=== PATIENT | female | born 1940 | race Caucasian/White ===

== ENCOUNTER 2017-09-08 09:34 | Inpatient (IN) | payer MEDICARE, BC ==
[2017-09-08 11:01] LABS: CHLORIDE,CL 106 mEq/L (98-106); SODIUM,NA 141 mEq/L (136-145)
[2017-09-08] MEDS ORDERED: Iopamidol 755 Mg/ML 100 ML Bottle IVPUSH ONE (11:25)
[2017-09-08] MEDS ORDERED: Ondansetron 4 MG/2 ML SDV IV PRN (14:10)
[2017-09-08] MEDS ORDERED: Acetaminophen 325 MG Tab PO PRN (14:10)
[2017-09-08] MEDS ORDERED: Ondansetron 4 MG Tab.DIS PO PRN (14:10)
[2017-09-08] MEDS ORDERED: Docusate Sodium 100 MG Cap PO PRN (14:10)
[2017-09-08] MEDS ORDERED: Sodium Chloride 0.9% 10 ML Syringe FLUSH PRN (14:10)
[2017-09-08] MEDS ORDERED: Magnesium Hydroxide 400 MG/5 ML Susp 30 ML Cup PO PRN (14:10)
[2017-09-08] MEDS ORDERED: Enoxaparin 80 MG/0.8 ML Syringe SUBCUT SCH (14:30)
[2017-09-08] MEDS: Warfarin 5 MG Tab PO SCH (15:39)
[2017-09-08] MEDS ORDERED: FLU Vacc QS 2017-18 (36mos UP)/PF 60 MCG/0.5 ML Syringe IM ONE (18:16)
[2017-09-08] MEDS: Enoxaparin 60 MG/0.6 ML Syringe SUBCUT SCH (19:49)
[2017-09-08] MEDS: Cholecalciferol (Vitamin D3) 1,000 Unit Tab PO SCH (19:54)
[2017-09-08] MEDS: Pantoprazole 40 MG Tab.CR PO SCH (19:54)
[2017-09-08] MEDS: Simvastatin 40 MG Tab PO SCH (19:54)
[2017-09-08] MEDS: Sertraline 25 MG Tab PO SCH (19:55)
[2017-09-08] MEDS ORDERED: Aspirin 325 MG Tab.EC PO SCH (20:00)
[2017-09-08] MEDS ORDERED: Losartan 25 MG Tab PO SCH (20:00)
[2017-09-08] MEDS ORDERED: Hydrochlorothiazide 12.5 MG Cap PO SCH (20:00)
[2017-09-09] MEDS ORDERED: Albuterol 8 GM Inhaler INH PRN (07:32)
[2017-09-09] MEDS ORDERED: Aspirin 81 MG Tab.EC PO ONE (08:26)
[2017-09-09] MEDS: Enoxaparin 60 MG/0.6 ML Syringe SUBCUT SCH ×2 (09:00→20:28)
[2017-09-09] MEDS: predniSONE 5 MG Tab PO SCH (09:01)
[2017-09-09] MEDS: Sertraline 100 MG Tab PO SCH (09:02)
[2017-09-09] MEDS: Isosorbide Mononitrate 30 MG Tab.ER PO SCH (09:02)
--- NOTE | 2017-09-09 09:30 | PCM.PN ---
- General Info Date of Service: 09/09/17 Admission Dx/Problem (Free Text): Right Pulmonary Embolism Subjective Update: Eula reports no overnight issues. Reports pain is well controlled. Continued shortness of breath and some right lower chest pain. Vital signs stable on room air. Nursing reports patients home medications need adjusted as patient reports she is no longer taking certain medications. Otherwise, no isses. Functional Status: Reports: Pain Controlled, Tolerating Diet, Ambulating, Urinating - Review of Systems General: Reports: Fatigue HEENT: Reports: No Symptoms Pulmonary: Reports: Shortness of Breath, Cough (occassional), Other (right lower chest pain- ache) Cardiovascular: Reports: No Symptoms, Dyspnea on Exertion Gastrointestinal: Reports: No Symptoms Genitourinary: Reports: No Symptoms Musculoskeletal: Reports: No Symptoms Skin: Reports: No Symptoms - Patient Data Vitals - Most Recent: Last Vital Signs Temp 96.5 F 09/09/17 07:29 Pulse 52 L 09/09/17 07:29 Resp 16 09/09/17 07:29 BP 137/63 09/09/17 09:02 Pulse Ox 97 09/09/17 07:29 Weight - Most Recent: 162 lb Lab Results Last 24 Hours: Laboratory Results - last 24 hr 09/08/17 09/08/17 09/08/17 Range/Units 07:00 09:43 09:43 PT 9.9 (9.7-12.3) SEC INR 0.92 (0.92-1.18) D-Dimer, Quantitative 1.34 H (0.00-0.50) Sodium (136-145) mEq/L Potassium (3.5-5.0) mEq/L Chloride (98-106) mEq/L Carbon Dioxide (21-32) mmol/L BUN (7-18) mg/dL Creatinine (0.6-1.0) mg/dL Est Cr Clr Drug Dosing Estimated GFR (MDRD) (>=60) mL/min Glucose (75-99) mg/dL Calcium (8.4-10.1) mg/dL C-Reactive Protein 2.3 H (0.2-0.8) mg/dL NT-Pro-B Natriuret Pep 657 (0-1000) pg/mL 09/08/17 09/08/17 09/09/17 Range/Units 10:45 14:46 07:20 PT Cancelled 10.8 (9.7-12.3) SEC INR Cancelled 1.00 (0.92-1.18) D-Dimer, Quantitative (0.00-0.50) Sodium 141 (136-145) mEq/L Potassium 4.4 (3.5-5.0) mEq/L Chloride 106 (98-106) mEq/L Carbon Dioxide 29 (21-32) mmol/L BUN 21 H (7-18) mg/dL Creatinine 0.9 (0.6-1.0) mg/dL Est Cr Clr Drug Dosing TNP Estimated GFR (MDRD) > 60 (>=60) mL/min Glucose 98 (75-99) mg/dL Calcium 9.1 (8.4-10.1) mg/dL C-Reactive Protein (0.2-0.8) mg/dL NT-Pro-B Natriuret Pep (0-1000) pg/mL Med Orders - Current: Current Medications Acetaminophen (Tylenol) 650 mg PO Q4H PRN PRN Reason: Pain (Mild 1-3)/fever Albuterol (Ventolin Hfa) 0 gm INH ASDIRECTED PRN PRN Reason: Dyspnea Aspirin (Halfprin) 81 mg PO BEDTIME [facility] Cholecalciferol (Vitamin D3) 5,000 units PO BEDTIME [facility] Last Admin: 09/08/17 19:54 Dose: 5,000 units Docusate Sodium (Colace) 100 mg PO BID PRN PRN Reason: Constipation Enoxaparin Sodium (Lovenox) 60 mg SUBCUT BID [facility] Last Admin: 09/09/17 09:00 Dose: 60 mg Isosorbide Mononitrate (Imdur) 30 mg PO DAILY [facility] Last Admin: 09/09/17 09:02 Dose: 30 mg Magnesium Hydroxide (Milk Of Magnesia) 30 ml PO Q12H PRN PRN Reason: Constipation Last Admin: 09/09/17 09:12 Dose: 30 ml Magnesium Oxide (Magnesium Oxide) 500 mg PO BEDTIME [facility] Last Admin: 09/08/17 19:53 Dose: 500 mg Ondansetron HCl (Zofran Odt) 4 mg PO Q4H PRN PRN Reason: nausea, able to take PO Ondansetron HCl (Zofran) 4 mg IV Q4H PRN PRN Reason: Nausea/Vomiting Pantoprazole Sodium (Protonix) 40 mg PO BEDTIME [facility] Last Admin: 09/08/17 19:54 Dose: 40 mg Prednisone (Prednisone) 2.5 mg PO DAILY [facility] Last Admin: 09/09/17 09:01 Dose: 2.5 mg Sertraline HCl (Zoloft) 50 mg PO BEDTIME [facility] Last Admin: 09/08/17 19:55 Dose: 50 mg Sertraline HCl (Zoloft) 100 mg PO DAILY [facility] Last Admin: 09/09/17 09:02 Dose: 100 mg Simvastatin (Zocor) 80 mg PO BEDTIME [facility] Last Admin: 09/08/17 19:54 Dose: 80 mg Sodium Chloride (Saline Flush) 10 ml FLUSH ASDIRECTED PRN PRN Reason: Keep Vein Open Warfarin Sodium (Coumadin) 10 mg PO DAILY@1200 [facility] Last Admin: 09/08/17 15:39 Dose: 10 mg Zolpidem Tartrate (Ambien) 5 mg PO BEDTIME PRN PRN Reason: Sleep Discontinued Medications Aspirin (Ecotrin) 325 mg PO BEDTIME [facility] Last Admin: 09/08/17 19:53 Dose: 325 mg Aspirin (Halfprin) 81 mg PO ONETIME ONE Stop: 09/09/17 08:27 Enoxaparin Sodium (Lovenox) 70 mg SUBCUT Q12H [facility] Last Admin: 09/08/17 15:36 Dose: Not Given Hydrochlorothiazide (Hydrochlorothiazide) 12.5 mg PO BEDTIME [facility] Last Admin: 09/08/17 19:53 Dose: Not Given Influenza Virus Vaccine (Fluzone Quad [id number]) 60 mcg IM .ONCE ONE Stop: 09/08/17 18:17 Last Admin: 09/08/17 18:35 Dose: 60 mcg Iopamidol (Isovue-370 (76%)) 100 ml IVPUSH ONETIME ONE Stop: 09/08/17 11:26 Last Admin: 09/08/17 12:12 Dose: 100 ml Losartan Potassium (Cozaar) 50 mg PO BEDTIME [facility] Last Admin: 09/08/17 19:52 Dose: Not Given - Exam General: Alert, Oriented, No Acute Distress Neck: Supple Lungs: Clear to Auscultation, Normal Respiratory Effort Cardiovascular: Regular Rate, Regular Rhythm GI/Abdominal Exam: Normal Bowel Sounds, Soft, Non-Tender, No Organomegaly, No Distention, No Abnormal Bruit, No Mass, Pelvis Stable Extremities: Normal Inspection, Normal Range of Motion, Non-Tender, No Pedal Edema, Normal Capillary Refill Skin: Warm, Dry, Intact Neurological: No New Focal Deficit Psy/Mental Status: Alert, Normal Affect, Normal Mood - Problem List Review Problem List Initiated/Reviewed/Updated: Yes - My Orders Last 24 Hours: My Active Orders 09/08/17 14:10 Patient Status [ADT] Routine Oxygen Therapy [RC] .PRN Up ad Gunjan [RC] .PRN Up to Chair [RC] .PRN Vital Signs [RC] 0000,0400,0800,1200,1600,2000 Acetaminophen [Tylenol] 650 mg PO Q4H PRN Docusate Sodium [Colace] 100 mg PO BID PRN Magnesium Hydroxide [Milk of Magnesia] 30 ml PO Q12H PRN Ondansetron [Zofran ODT] 4 mg PO Q4H PRN Ondansetron [Zofran] 4 mg IV Q4H PRN Sodium Chloride 0.9% [Saline Flush] 10 ml FLUSH ASDIRECTED PRN Saline Lock Insert [OM.PC] Routine Resuscitation Status Routine 09/08/17 14:12 Cardiac Monitoring [RC] 0800,2000 09/08/17 14:21 Pharmacy Consult [Consult to Pharmacy] [CONS] Routine 09/08/17 15:15 Warfarin [Coumadin] 10 mg PO DAILY@1200 09/08/17 20:00 Cholecalciferol (Vitamin D3) [Vitamin D3] 5,000 units PO BEDTIME Enoxaparin [Lovenox] 60 mg SUBCUT BID Magnesium Oxide 500 mg PO BEDTIME Pantoprazole [ProTONIX] 40 mg PO BEDTIME Sertraline [Zoloft] 50 mg PO BEDTIME Simvastatin [Zocor] 80 mg PO BEDTIME 09/08/17 Dinner Regular Diet [DIET] 09/09/17 07:32 Albuterol [Ventolin HFA] 0 gm INH ASDIRECTED PRN Zolpidem [Ambien] 5 mg PO BEDTIME PRN 09/09/17 08:00 Sertraline [Zoloft] 100 mg PO DAILY predniSONE 2.5 mg PO DAILY 09/09/17 08:30 Isosorbide Mononitrate [Imdur] 30 mg PO DAILY 09/09/17 20:00 Aspirin [Halfprin] 81 mg PO BEDTIME - Assessment Assessment:: Right Pulmonary Embolism - Plan Plan:: Continue lovenox until INR is therapeutic. INR 1.0 today. Will dose 10 mg coumadin. Decrease aspirin to 81 mg dose. Expect patient will be here 2-3 more days before INR is therapeutic. Discussed that patient will be on intermediate [employer] anticoagulation. Medications adjusted to match home therapy.
[2017-09-09] MEDS: Warfarin 5 MG Tab PO SCH (11:26)
[2017-09-09] MEDS: Pantoprazole 40 MG Tab.CR PO SCH (20:28)
[2017-09-09] MEDS: Aspirin 81 MG Tab.EC PO SCH (20:28)
[2017-09-09] MEDS: Cholecalciferol (Vitamin D3) 1,000 Unit Tab PO SCH (20:28)
[2017-09-09] MEDS: Simvastatin 40 MG Tab PO SCH (20:29)
[2017-09-09] MEDS: Sertraline 25 MG Tab PO SCH (20:29)
[2017-09-09] MEDS: Zolpidem 5 MG Tab PO PRN (20:38)
[2017-09-10] MEDS: Enoxaparin 60 MG/0.6 ML Syringe SUBCUT SCH ×2 (08:20→20:26)
[2017-09-10] MEDS: predniSONE 5 MG Tab PO SCH (08:21)
[2017-09-10] MEDS: traMADol 50 MG Tab PO PRN ×2 (08:22→16:55)
[2017-09-10] MEDS: Sertraline 100 MG Tab PO SCH (08:22)
[2017-09-10] MEDS: Isosorbide Mononitrate 30 MG Tab.ER PO SCH (10:37)
[2017-09-10] MEDS ORDERED: Warfarin 5 MG Tab PO ONE (12:00)
[2017-09-10] MEDS: Zolpidem 5 MG Tab PO PRN (20:25)
[2017-09-10] MEDS: Cholecalciferol (Vitamin D3) 1,000 Unit Tab PO SCH (20:25)
[2017-09-10] MEDS: Sertraline 25 MG Tab PO SCH (20:25)
[2017-09-10] MEDS: Simvastatin 40 MG Tab PO SCH (20:25)
[2017-09-10] MEDS: Aspirin 81 MG Tab.EC PO SCH (20:26)
[2017-09-10] MEDS: Pantoprazole 40 MG Tab.CR PO SCH (20:26)
[2017-09-11] MEDS ORDERED: Morphine 2 MG/ML Syringe IVPUSH ONE (04:05)
[2017-09-11] MEDS ORDERED: Ondansetron 4 MG/2 ML SDV IV ONE (04:06)
[2017-09-11] MEDS ORDERED: Ondansetron 4 MG/2 ML SDV ONE (04:32)
[2017-09-11] MEDS ORDERED: Morphine 2 MG/ML Syringe ONE (04:32)
[2017-09-11] MEDS ORDERED: Ondansetron 4 MG/2 ML SDV IVPUSH ONE (06:33)
[2017-09-11] MEDS: Isosorbide Mononitrate 30 MG Tab.ER PO SCH (08:42)
[2017-09-11] MEDS: Enoxaparin 60 MG/0.6 ML Syringe SUBCUT SCH (08:43)
[2017-09-11] MEDS: predniSONE 5 MG Tab PO SCH (08:44)
[2017-09-11] MEDS: Sertraline 100 MG Tab PO SCH (08:44)
[2017-09-11] MEDS ORDERED: Temazepam 15 MG Cap PO PRN (12:44)
--- NOTE | 2017-09-11 13:23 | PCM.PN ---
- General Info Date of Service: 09/11/17 Admission Dx/Problem (Free Text): Right Pulmonary Embolism Subjective Update: Patient has been more anxious overnight. Nursing did report one episode of vomiting. States shortness of breath and chest pain are improving. Has been up ambulating. Hip pain is improved after she brought her magnet blanket. INR 2.16 today. No other acute issues. Functional Status: Reports: Pain Controlled, Tolerating Diet, Ambulating, Urinating - Review of Systems General: Reports: No Symptoms HEENT: Reports: No Symptoms Pulmonary: Reports: Shortness of Breath (improving), Pleuritic Chest Pain ( right lower lobe), Cough. Denies: Wheezing Cardiovascular: Reports: Dyspnea on Exertion. Denies: Chest Pain, Palpitations , Lightheadedness Gastrointestinal: Reports: No Symptoms. Denies: Abdominal Pain, Constipation, Decreased Appetite, Diarrhea, Nausea, Vomiting (one episode of vomiting last night, none since) Genitourinary: Reports: No Symptoms Musculoskeletal: Reports: No Symptoms Skin: Reports: No Symptoms Neurological: Reports: No Symptoms Psychiatric: Reports: Anxiety - Patient Data Vitals - Most Recent: Last Vital Signs Temp 97.3 F 09/11/17 11:59 Pulse 70 09/11/17 11:59 Resp 16 09/11/17 11:59 BP 131/57 L 09/11/17 11:59 Pulse Ox 94 L 09/11/17 11:59 Weight - Most Recent: 162 lb I&O - Last 24 Hours: Intake & Output 09/10/17 09/11/17 09/11/17 22:59 06:59 14:59 Intake Total 400 Balance 400 Lab Results Last 24 Hours: Laboratory Results - last 24 hr 09/11/17 09/11/17 09/11/17 Range/Units 04:19 07:30 07:30 PT 23.9 H (9.7-12.3) SEC INR 2.16 H (0.92-1.18) Troponin I < 0.017 < 0.017 (0.00-0.06) ng/mL Med Orders - Current: Current Medications Acetaminophen (Tylenol) 650 mg PO Q4H PRN PRN Reason: Pain (Mild 1-3)/fever Albuterol (Ventolin Hfa) 0 gm INH ASDIRECTED PRN PRN Reason: Dyspnea Aspirin (Halfprin) 81 mg PO BEDTIME [facility] Last Admin: 10/13/17 20:26 Dose: 81 mg Cholecalciferol (Vitamin D3) 5,000 units PO BEDTIME [facility] Last Admin: 09/10/17 20:25 Dose: 5,000 units Docusate Sodium (Colace) 100 mg PO BID PRN PRN Reason: Constipation Isosorbide Mononitrate (Imdur) 30 mg PO DAILY [facility] Last Admin: 09/11/17 08:42 Dose: Not Given Magnesium Hydroxide (Milk Of Magnesia) 30 ml PO Q12H PRN PRN Reason: Constipation Last Admin: 09/09/17 09:12 Dose: 30 ml Magnesium Oxide (Magnesium Oxide) 500 mg PO BEDTIME [facility] Last Admin: 09/10/17 20:26 Dose: 500 mg Daily Coumadin--Ask (Provider Daily) 1 each .XX DAILY [facility] Ondansetron HCl (Zofran Odt) 4 mg PO Q4H PRN PRN Reason: nausea, able to take PO Pantoprazole Sodium (Protonix) 40 mg PO BEDTIME [facility] Last Admin: 09/10/17 20:26 Dose: 40 mg Prednisone (Prednisone) 2.5 mg PO DAILY [facility] Last Admin: 09/11/17 08:44 Dose: 2.5 mg Sertraline HCl (Zoloft) 50 mg PO BEDTIME [facility] Last Admin: 09/10/17 20:25 Dose: 50 mg Sertraline HCl (Zoloft) 100 mg PO DAILY [facility] Last Admin: 09/11/17 08:44 Dose: 100 mg Simvastatin (Zocor) 80 mg PO BEDTIME [facility] Last Admin: 09/10/17 20:25 Dose: 80 mg Sodium Chloride (Saline Flush) 10 ml FLUSH ASDIRECTED PRN PRN Reason: Keep Vein Open Temazepam (Restoril) 15 mg PO BEDTIME PRN PRN Reason: Insomnia Tramadol HCl (Ultram) 50 mg PO Q6H PRN PRN Reason: Pain Last Admin: 09/10/17 16:55 Dose: 50 mg Warfarin Sodium (Coumadin) 5 mg PO DAILY@1200 [facility] Zolpidem Tartrate (Ambien) 5 mg PO BEDTIME PRN PRN Reason: Sleep Last Admin: 09/10/17 20:25 Dose: 5 mg Discontinued Medications Aspirin (Ecotrin) 325 mg PO BEDTIME [facility] Last Admin: 09/08/17 19:53 Dose: 325 mg Aspirin (Halfprin) 81 mg PO ONETIME ONE Stop: 09/09/17 08:27 Last Admin: 09/09/17 10:13 Dose: Not Given Enoxaparin Sodium (Lovenox) 70 mg SUBCUT Q12H [facility] Last Admin: 09/08/17 15:36 Dose: Not Given Enoxaparin Sodium (Lovenox) 60 mg SUBCUT BID [facility] Last Admin: 09/11/17 08:43 Dose: 60 mg Hydrochlorothiazide (Hydrochlorothiazide) 12.5 mg PO BEDTIME [facility] Last Admin: 09/08/17 19:53 Dose: Not Given Influenza Virus Vaccine (Fluzone Quad [id number]) 60 mcg IM .ONCE ONE Stop: 09/08/17 18:17 Last Admin: 09/08/17 18:35 Dose: 60 mcg Iopamidol (Isovue-370 (76%)) 100 ml IVPUSH ONETIME ONE Stop: 09/08/17 11:26 Last Admin: 09/08/17 12:12 Dose: 100 ml Losartan Potassium (Cozaar) 50 mg PO BEDTIME [facility] Last Admin: 09/08/17 19:52 Dose: Not Given Morphine Sulfate (Morphine) 2 mg IVPUSH ONETIME ONE Stop: 09/11/17 04:06 Last Admin: 09/11/17 04:24 Dose: 2 mg Morphine Sulfate (Morphine) Confirm Administered Dose 2 mg .ROUTE .STK-MED ONE Stop: 09/11/17 04:33 Last Admin: 09/11/17 04:23 Dose: Not Given Ondansetron HCl (Zofran) 4 mg IV Q4H PRN PRN Reason: Nausea/Vomiting Ondansetron HCl (Zofran) 4 mg IV ONETIME ONE Stop: 09/11/17 04:07 Last Admin: 09/11/17 04:24 Dose: 4 mg Ondansetron HCl (Zofran) Confirm Administered Dose 4 mg .ROUTE .STK-MED ONE Stop: 09/11/17 04:33 Last Admin: 09/11/17 04:23 Dose: Not Given Ondansetron HCl (Zofran) 4 mg IVPUSH ONETIME ONE Stop: 09/11/17 06:34 Warfarin Sodium (Coumadin) 10 mg PO DAILY@1200 [facility] Last Admin: 09/09/17 11:26 Dose: 10 mg Warfarin Sodium (Coumadin) 5 mg PO ONETIME ONE Stop: 09/10/17 12:01 Last Admin: 09/10/17 11:09 Dose: 5 mg - Exam General: Alert, Oriented, Cooperative, No Acute Distress HEENT: Pupils Equal, Pupils Reactive, EOMI, Mucous Membr. Moist/Jansen Neck: Supple, Trachea Midline Lungs: Clear to Auscultation, Normal Respiratory Effort Cardiovascular: Regular Rate, Regular Rhythm GI/Abdominal Exam: Normal Bowel Sounds, Soft, Non-Tender, No Organomegaly, No Distention, No Abnormal Bruit, No Mass, Pelvis Stable (Female) Exam: Deferred Back Exam: Normal Inspection, Full Range of Motion Extremities: Normal Inspection, Normal Range of Motion, Non-Tender, No Pedal Edema, Normal Capillary Refill Skin: Warm, Dry, Intact Wound/Incisions: Healing Well Neurological: No New Focal Deficit Psy/Mental Status: Alert, Normal Affect, Normal Mood, Anxious - Problem List & Annotations (1) Pulmonary embolism SNOMED Code(s): 39054757 Code(s): I26.99 - OTHER PULMONARY EMBOLISM WITHOUT ACUTE COR PULMONALE Status: Acute Priority: High Current Visit: Yes (2) Polymyalgia rheumatica SNOMED Code(s): 08333406 Code(s): M35.3 - POLYMYALGIA RHEUMATICA Status: Acute Current Visit: Yes - Problem List Review Problem List Initiated/Reviewed/Updated: Yes - My Orders Last 24 Hours: My Active Orders 09/11/17 12:44 Temazepam [Restoril] 15 mg PO BEDTIME PRN 09/11/17 12:45 Warfarin [Coumadin] 5 mg PO DAILY@1200 09/12/17 05:00 INR,PT,PROTHROMBIN TIME [COAG] Routine - Assessment Assessment:: Right Pulmonary Embolism - Plan Plan:: INR therapeutic. Lovenox stopped. Will dose 5 mg coumadin today. Recheck INR tomorrow. Potential discharge home tomorrow if INR remains therapeutic. Resteril order PRN for sleep.
[2017-09-11] MEDS: [UNRECOGNIZED DRUG - REMARK] SCH (14:23)
[2017-09-11] MEDS: Warfarin 5 MG Tab PO SCH (14:28)
--- NOTE | 2017-09-11 15:59 | PCM.PN ---
- General Info Date of Service: 09/10/17 Admission Dx/Problem (Free Text): Right Pulmonary Embolism Subjective Update: No acute overnight events. Does report she is experiencing more hip pain and a headache described as pressure. Feels this is related to her polymyalgia rheumatica and the fact that she doesn't have her magnet blanket with her. INR 1.69 today. Functional Status: Reports: Tolerating Diet, Ambulating, Urinating - Review of Systems General: Reports: No Symptoms HEENT: Reports: No Symptoms, Headaches (described as pressure) Pulmonary: Reports: Shortness of Breath, Pleuritic Chest Pain (right lower lobe) , Cough Cardiovascular: Reports: Dyspnea on Exertion, Lightheadedness (sometimes with standing). Denies: Chest Pain, Palpitations Gastrointestinal: Reports: No Symptoms. Denies: Abdominal Pain, Decreased Appetite, Diarrhea, Nausea, Vomiting Genitourinary: Reports: No Symptoms Musculoskeletal: Reports: No Symptoms Skin: Reports: No Symptoms Neurological: Reports: Headache. Denies: Confusion, Dizziness, Numbness, Paresthesia, Syncope, Weakness Psychiatric: Reports: Anxiety. Denies: Confusion, Mood Lability - Patient Data Vitals - Most Recent: Last Vital Signs Temp 97.3 F 09/11/17 11:59 Pulse 70 09/11/17 11:59 Resp 16 09/11/17 11:59 BP 131/57 L 09/11/17 11:59 Pulse Ox 94 L 09/11/17 11:59 Weight - Most Recent: 162 lb I&O - Last 24 Hours: Intake & Output 09/11/17 09/11/17 09/11/17 06:59 14:59 22:59 Intake Total 400 Balance 400 Lab Results Last 24 Hours: Laboratory Results - last 24 hr 09/11/17 09/11/17 09/11/17 Range/Units 04:19 07:30 07:30 PT 23.9 H (9.7-12.3) SEC INR 2.16 H (0.92-1.18) Troponin I < 0.017 < 0.017 (0.00-0.06) ng/mL Med Orders - Current: Current Medications Acetaminophen (Tylenol) 650 mg PO Q4H PRN PRN Reason: Pain (Mild 1-3)/fever Albuterol (Ventolin Hfa) 0 gm INH ASDIRECTED PRN PRN Reason: Dyspnea Aspirin (Halfprin) 81 mg PO BEDTIME [facility] Last Admin: 09/10/17 20:26 Dose: 81 mg Cholecalciferol (Vitamin D3) 5,000 units PO BEDTIME [facility] Last Admin: 09/10/17 20:25 Dose: 5,000 units Docusate Sodium (Colace) 100 mg PO BID PRN PRN Reason: Constipation Isosorbide Mononitrate (Imdur) 30 mg PO DAILY [facility] Last Admin: 09/11/17 08:42 Dose: Not Given Magnesium Hydroxide (Milk Of Magnesia) 30 ml PO Q12H PRN PRN Reason: Constipation Last Admin: 09/09/17 09:12 Dose: 30 ml Magnesium Oxide (Magnesium Oxide) 500 mg PO BEDTIME [facility] Last Admin: 09/10/17 20:26 Dose: 500 mg Daily Coumadin--Ask (Provider Daily) 1 each .XX DAILY [facility] Last Admin: 09/11/17 14:23 Dose: Not Given Ondansetron HCl (Zofran Odt) 4 mg PO Q4H PRN PRN Reason: nausea, able to take PO Pantoprazole Sodium (Protonix) 40 mg PO BEDTIME [facility] Last Admin: 09/10/17 20:26 Dose: 40 mg Prednisone (Prednisone) 2.5 mg PO DAILY [facility] Last Admin: 09/11/17 08:44 Dose: 2.5 mg Sertraline HCl (Zoloft) 50 mg PO BEDTIME [facility] Last Admin: 09/10/17 20:25 Dose: 50 mg Sertraline HCl (Zoloft) 100 mg PO DAILY [facility] Last Admin: 09/11/17 08:44 Dose: 100 mg Simvastatin (Zocor) 80 mg PO BEDTIME [facility] Last Admin: 09/10/17 20:25 Dose: 80 mg Sodium Chloride (Saline Flush) 10 ml FLUSH ASDIRECTED PRN PRN Reason: Keep Vein Open Temazepam (Restoril) 15 mg PO BEDTIME PRN PRN Reason: Insomnia Tramadol HCl (Ultram) 50 mg PO Q6H PRN PRN Reason: Pain Last Admin: 09/10/17 16:55 Dose: 50 mg Warfarin Sodium (Coumadin) 5 mg PO DAILY@1200 [facility] Last Admin: 09/11/17 14:28 Dose: 5 mg Zolpidem Tartrate (Ambien) 5 mg PO BEDTIME PRN PRN Reason: Sleep Last Admin: 09/10/17 20:25 Dose: 5 mg Discontinued Medications Aspirin (Ecotrin) 325 mg PO BEDTIME [facility] Last Admin: 09/08/17 19:53 Dose: 325 mg Aspirin (Halfprin) 81 mg PO ONETIME ONE Stop: 09/09/17 08:27 Last Admin: 09/09/17 10:13 Dose: Not Given Enoxaparin Sodium (Lovenox) 70 mg SUBCUT Q12H [facility] Last Admin: 09/08/17 15:36 Dose: Not Given Enoxaparin Sodium (Lovenox) 60 mg SUBCUT BID [facility] Last Admin: 09/11/17 08:43 Dose: 60 mg Hydrochlorothiazide (Hydrochlorothiazide) 12.5 mg PO BEDTIME [facility] Last Admin: 09/08/17 19:53 Dose: Not Given Influenza Virus Vaccine (Fluzone Quad [id number]) 60 mcg IM .ONCE ONE Stop: 09/08/17 18:17 Last Admin: 09/08/17 18:35 Dose: 60 mcg Iopamidol (Isovue-370 (76%)) 100 ml IVPUSH ONETIME ONE Stop: 09/08/17 11:26 Last Admin: 09/08/17 12:12 Dose: 100 ml Losartan Potassium (Cozaar) 50 mg PO BEDTIME [facility] Last Admin: 09/08/17 19:52 Dose: Not Given Morphine Sulfate (Morphine) 2 mg IVPUSH ONETIME ONE Stop: 09/11/17 04:06 Last Admin: 09/11/17 04:24 Dose: 2 mg Morphine Sulfate (Morphine) Confirm Administered Dose 2 mg .ROUTE .STK-MED ONE Stop: 09/11/17 04:33 Last Admin: 09/11/17 04:23 Dose: Not Given Ondansetron HCl (Zofran) 4 mg IV Q4H PRN PRN Reason: Nausea/Vomiting Ondansetron HCl (Zofran) 4 mg IV ONETIME ONE Stop: 09/11/17 04:07 Last Admin: 09/11/17 04:24 Dose: 4 mg Ondansetron HCl (Zofran) Confirm Administered Dose 4 mg .ROUTE .STK-MED ONE Stop: 09/11/17 04:33 Last Admin: 09/11/17 04:23 Dose: Not Given Ondansetron HCl (Zofran) 4 mg IVPUSH ONETIME ONE Stop: 09/11/17 06:34 Last Admin: 09/11/17 14:23 Dose: Not Given Warfarin Sodium (Coumadin) 10 mg PO DAILY@1200 [facility] Last Admin: 09/09/17 11:26 Dose: 10 mg Warfarin Sodium (Coumadin) 5 mg PO ONETIME ONE Stop: 09/10/17 12:01 Last Admin: 09/10/17 11:09 Dose: 5 mg - Exam General: Alert, Oriented HEENT: Pupils Equal, Pupils Reactive, EOMI, Mucous Membr. Moist/[place] Neck: Supple, Trachea Midline Lungs: Clear to Auscultation, Normal Respiratory Effort Cardiovascular: Regular Rate, Regular Rhythm GI/Abdominal Exam: Normal Bowel Sounds, Soft, Non-Tender, No Organomegaly, No Distention, No Abnormal Bruit, No Mass, Pelvis Stable (Female) Exam: Deferred Back Exam: Normal Inspection, Full Range of Motion Extremities: Normal Inspection, Normal Range of Motion, Non-Tender, No Pedal Edema, Normal Capillary Refill Skin: Warm, Dry, Intact Wound/Incisions: Healing Well Neurological: No New Focal Deficit Psy/Mental Status: Alert, Normal Affect, Normal Mood, Anxious - Problem List & Annotations (1) Pulmonary embolism SNOMED Code(s): 18480415 Code(s): I26.99 - OTHER PULMONARY EMBOLISM WITHOUT ACUTE COR PULMONALE Status: Acute Priority: High Current Visit: Yes (2) Polymyalgia rheumatica SNOMED Code(s): 37943349 Code(s): M35.3 - POLYMYALGIA RHEUMATICA Status: Acute Current Visit: Yes - Problem List Review Problem List Initiated/Reviewed/Updated: Yes - My Orders Last 24 Hours: My Active Orders 09/11/17 12:44 Temazepam [Restoril] 15 mg PO BEDTIME PRN 09/11/17 12:45 Warfarin [Coumadin] 5 mg PO DAILY@1200 09/12/17 05:00 INR,PT,PROTHROMBIN TIME [COAG] Routine - Assessment Assessment:: Right Pulmonary Embolism - Plan Plan:: INR therapeutic. Lovenox stopped. Will dose 5 mg coumadin today. Recheck INR tomorrow. Potential discharge home tomorrow if INR remains therapeutic. Resteril order PRN for sleep.
[2017-09-11] MEDS: Cholecalciferol (Vitamin D3) 1,000 Unit Tab PO SCH (20:52)
[2017-09-11] MEDS: Simvastatin 40 MG Tab PO SCH (20:53)
[2017-09-11] MEDS: Aspirin 81 MG Tab.EC PO SCH (20:53)
[2017-09-11] MEDS: Sertraline 25 MG Tab PO SCH (20:53)
[2017-09-11] MEDS: Pantoprazole 40 MG Tab.CR PO SCH (20:53)
[2017-09-12] MEDS: Isosorbide Mononitrate 30 MG Tab.ER PO SCH (08:18)
[2017-09-12] MEDS: Sertraline 100 MG Tab PO SCH (08:22)
[2017-09-12] MEDS: predniSONE 5 MG Tab PO SCH (08:22)
[2017-09-12] MEDS: [UNRECOGNIZED DRUG - REMARK] SCH (08:29)
[2017-09-12 11:56] VITALS: BP 129/64
[2017-09-12] MEDS: Warfarin 5 MG Tab PO SCH (12:13)
--- NOTE | 2017-09-12 12:29 | PCM.DCSUM1 ---
Discharge Summary - Hospital Course HPI Initial Comments: Patient was admitted on 09/08/2017 with a right pulmonary embolism, diagnosed via CTA Chest after an elevated D-Dimer. Upon admission, patient had some right lower chest pain and shortness of breath. Anticoagulation initiated. Bridged with 60 mg Lovenox BID until INR was therapeutic. 09/08 patient was dosed 10 mg Coumadin. 09/09 INR was 1.0, patient was dosed 10 mg coumadin. 09/10 INR was 1.69, patient was dosed 5 mg Coumadin. 09/11 INR was 2.16, patient was dosed 5 mg Coumadin and Lovenox was stopped. 09/12 INR was 2.09, patient was dosed 5 mg Coumadin. Patient will be discharged home on 5 mg Coumadin QD. Patient will follow up Wednesday with a repeat INR and appointment with Laure Gran[facility]. Throughout hospital stay, patients shortness of breath and chest pain resolved. Patient's heart rate remained sinus bradycardia/normal sinus rhythm throughout hospital stay on cardiac monitoring. Patient had no dizziness or lightheadedness when pulse was lower. Patient was asymptomatic. Upon discharge vital signs were stable and patient was asymptomatic. Throughout stay patient remained hemodynaically stable without any respiratory distress. Patient was sent home with paper script for 5 mg Coumadin PO QD. Patient was administered today's dose of Coumadin and will refill script tomorrow. - Discharge Data Discharge Date: 09/12/17 Discharge Disposition: Home, Self-Care 01 Condition: Good - Discharge Diagnosis/Problem(s) (1) Pulmonary embolism SNOMED Code(s): 34782810 ICD Code: I26.99 - OTHER PULMONARY EMBOLISM WITHOUT ACUTE COR PULMONALE Status: Acute Priority: High Current Visit: Yes (2) Polymyalgia rheumatica SNOMED Code(s): 76517660 ICD Code: M35.3 - POLYMYALGIA RHEUMATICA Status: Acute Current Visit: Yes - Patient Summary/Data Consults: Consultations 09/08/17 14:21 Pharmacy Consult [Consult to Pharmacy] [CONS] Routine - Discharge Plan Prescriptions/Med Rec: Warfarin [Coumadin] 5 mg PO DAILY #30 tablet Home Medications: Home Meds Aspirin [Ecotrin] 325 mg PO BEDTIME 05/23/14 [History] Cholecalciferol (Vitamin D3) [Vitamin D3] 5,000 unit PO BEDTIME 05/23/14 [ History] Omeprazole 20 mg PO BEDTIME 05/23/14 [History] Rosuvastatin [Crestor] 40 mg PO BEDTIME 05/23/14 [History] Magnesium Oxide 400 mg PO BEDTIME 07/31/14 [History] Albuterol Sulfate [Proair Hfa] 1 - 2 puff ASDIRECTED PRN 09/09/17 [History] Sertraline HCl [Sertraline HCl] 100 mg PO DAILY 09/09/17 [History] Zolpidem Tartrate [Zolpidem Tartrate] 1 tab PO ASDIRECTED PRN 09/09/17 [History] predniSONE [Prednisone] 2.5 mg PO DAILY 09/09/17 [History] Warfarin [Coumadin] 5 mg PO DAILY #30 tablet 09/12/17 [Rx] Referrals: Laure Granados [facility] [facility] [Primary Care Provider] - - General Info Date of Service: 09/12/17 Admission Dx/Problem (Free Text: Right Pulmonary Embolism Sinus Bradycardia Functional Status: Reports: Pain Controlled, Tolerating Diet, Ambulating, Urinating - Review of Systems General: Reports: No Symptoms. Denies: Fever, Weakness, Fatigue HEENT: Reports: No Symptoms. Denies: Headaches, Sinus Congestion, Sore Throat, Visual Changes Pulmonary: Reports: No Symptoms. Denies: Shortness of Breath, Pleuritic Chest Pain, Cough, Sputum, Hemoptysis, Wheezing Cardiovascular: Reports: No Symptoms. Denies: Chest Pain, Palpitations, Dyspnea on Exertion, Orthopnea, PND, Edema, Lightheadedness Gastrointestinal: Reports: No Symptoms. Denies: Abdominal Pain, Constipation, Decreased Appetite, Diarrhea, Difficulty Swallowing, Flatus, Hematochezia, Melena, Nausea, Vomiting Genitourinary: Reports: No Symptoms. Denies: Dysuria, Frequency, Urgency Musculoskeletal: Reports: No Symptoms. Denies: Joint Pain Skin: Reports: No Symptoms Neurological: Reports: No Symptoms. Denies: Headache, Weakness Psychiatric: Reports: No Symptoms - Patient Data Vitals - Most Recent: Last Vital Signs Temp 97.6 F 09/12/17 11:55 Pulse 54 L 09/12/17 11:55 Resp 18 09/12/17 11:55 BP 129/64 09/12/17 11:55 Pulse Ox 96 09/12/17 11:55 Weight - Most Recent: 162 lb I&O - Last 24 hours: Intake & Output 09/11/17 09/12/17 09/12/17 22:59 06:59 14:59 Intake Total 200 360 Balance 200 360 Lab Results - Last 24 hrs: Laboratory Results - last 24 hr 09/12/17 Range/Units 06:45 PT 23.1 H (9.7-12.3) SEC INR 2.09 H (0.92-1.18) Med Orders - Current: Current Medications Acetaminophen (Tylenol) 650 mg PO Q4H PRN PRN Reason: Pain (Mild 1-3)/fever Albuterol (Ventolin Hfa) 0 gm INH ASDIRECTED PRN PRN Reason: Dyspnea Aspirin (Halfprin) 81 mg PO BEDTIME [facility] Last Admin: 09/11/17 20:53 Dose: 81 mg Cholecalciferol (Vitamin D3) 5,000 units PO BEDTIME [facility] Last Admin: 09/11/17 20:52 Dose: 5,000 units Docusate Sodium (Colace) 100 mg PO BID PRN PRN Reason: Constipation Isosorbide Mononitrate (Imdur) 30 mg PO DAILY [facility] Last Admin: 09/12/17 08:18 Dose: Not Given Magnesium Hydroxide (Milk Of Magnesia) 30 ml PO Q12H PRN PRN Reason: Constipation Last Admin: 09/09/17 09:12 Dose: 30 ml Magnesium Oxide (Magnesium Oxide) 500 mg PO BEDTIME [facility] Last Admin: 09/11/17 20:53 Dose: 500 mg Daily Coumadin--Ask (Provider Daily) 1 each .XX DAILY [facility] Last Admin: 09/12/17 08:29 Dose: Not Given Ondansetron HCl (Zofran Odt) 4 mg PO Q4H PRN PRN Reason: nausea, able to take PO Pantoprazole Sodium (Protonix) 40 mg PO BEDTIME [facility] Last Admin: 09/11/17 20:53 Dose: 40 mg Prednisone (Prednisone) 2.5 mg PO DAILY [facility] Last Admin: 09/12/17 08:22 Dose: 2.5 mg Sertraline HCl (Zoloft) 50 mg PO BEDTIME [facility] Last Admin: 09/11/17 20:53 Dose: 50 mg Sertraline HCl (Zoloft) 100 mg PO DAILY [facility] Last Admin: 09/12/17 08:22 Dose: 100 mg Simvastatin (Zocor) 80 mg PO BEDTIME [facility] Last Admin: 09/11/17 20:53 Dose: 80 mg Sodium Chloride (Saline Flush) 10 ml FLUSH ASDIRECTED PRN PRN Reason: Keep Vein Open Temazepam (Restoril) 15 mg PO BEDTIME PRN PRN Reason: Insomnia Last Admin: 09/11/17 20:53 Dose: 15 mg Tramadol HCl (Ultram) 50 mg PO Q6H PRN PRN Reason: Pain Last Admin: 09/10/17 16:55 Dose: 50 mg Warfarin Sodium (Coumadin) 5 mg PO DAILY@1200 [facility] Last Admin: 09/12/17 12:13 Dose: 5 mg Zolpidem Tartrate (Ambien) 5 mg PO BEDTIME PRN PRN Reason: Sleep Last Admin: 09/10/17 20:25 Dose: 5 mg Discontinued Medications Aspirin (Ecotrin) 325 mg PO BEDTIME [facility] Last Admin: 09/08/17 19:53 Dose: 325 mg Aspirin (Halfprin) 81 mg PO ONETIME ONE Stop: 09/09/17 08:27 Last Admin: 09/09/17 10:13 Dose: Not Given Enoxaparin Sodium (Lovenox) 70 mg SUBCUT Q12H [facility] Last Admin: 09/08/17 15:36 Dose: Not Given Enoxaparin Sodium (Lovenox) 60 mg SUBCUT BID [facility] Last Admin: 09/11/17 08:43 Dose: 60 mg Hydrochlorothiazide (Hydrochlorothiazide) 12.5 mg PO BEDTIME [facility] Last Admin: 09/08/17 19:53 Dose: Not Given Influenza Virus Vaccine (Fluzone Quad 6634-1983) 60 mcg IM .ONCE ONE Stop: 09/08/17 18:17 Last Admin: 09/08/17 18:35 Dose: 60 mcg Iopamidol (Isovue-370 (76%)) 100 ml IVPUSH ONETIME ONE Stop: 09/08/17 11:26 Last Admin: 09/08/17 12:12 Dose: 100 ml Losartan Potassium (Cozaar) 50 mg PO BEDTIME [facility] Last Admin: 09/08/17 19:52 Dose: Not Given Morphine Sulfate (Morphine) 2 mg IVPUSH ONETIME ONE Stop: 09/11/17 04:06 Last Admin: 09/11/17 04:24 Dose: 2 mg Morphine Sulfate (Morphine) Confirm Administered Dose 2 mg .ROUTE .STK-MED ONE Stop: 09/11/17 04:33 Last Admin: 09/11/17 04:23 Dose: Not Given Ondansetron HCl (Zofran) 4 mg IV Q4H PRN PRN Reason: Nausea/Vomiting Ondansetron HCl (Zofran) 4 mg IV ONETIME ONE Stop: 09/11/17 04:07 Last Admin: 09/11/17 04:24 Dose: 4 mg Ondansetron HCl (Zofran) Confirm Administered Dose 4 mg .ROUTE .STK-MED ONE Stop: 09/11/17 04:33 Last Admin: 09/11/17 04:23 Dose: Not Given Ondansetron HCl (Zofran) 4 mg IVPUSH ONETIME ONE Stop: 09/11/17 06:34 Last Admin: 09/11/17 14:23 Dose: Not Given Warfarin Sodium (Coumadin) 10 mg PO DAILY@1200 [facility] Last Admin: 09/09/17 11:26 Dose: 10 mg Warfarin Sodium (Coumadin) 5 mg PO ONETIME ONE Stop: 09/10/17 12:01 Last Admin: 09/10/17 11:09 Dose: 5 mg - Exam General: Reports: Alert, Oriented, No Acute Distress HEENT: Reports: Pupils Equal, Pupils Reactive, EOMI, Mucous Membr. Moist/[place] Neck: Reports: Supple, Trachea Midline Lungs: Reports: Clear to Auscultation, Normal Respiratory Effort. Denies: Decreased Breath Sounds, Rhonchi, Wheezing Cardiovascular: Reports: Regular Rhythm, No Murmurs, Bradycardia (asymptomatic, upper 50's) GI/Abdominal Exam: Normal Bowel Sounds, Soft, Non-Tender, No Organomegaly, No Distention, No Abnormal Bruit, No Mass, Pelvis Stable (Female) Exam: Deferred Rectal (Female) Exam: Deferred Back Exam: Reports: Normal Inspection, Full Range of Motion Extremities: Normal Inspection, Normal Range of Motion, Non-Tender, No Pedal Edema, Normal Capillary Refill Skin: Reports: Warm, Dry, Intact Neurological: Reports: No New Focal Deficit, Normal Gait Psy/Mental Status: Reports: Alert, Normal Affect, Normal Mood *Q Meaningful Use (DIS) - VTE *Q VTE Criteria *Q: - Stroke *Q Stroke Criteria *Q: - AMI *Q AMI Criteria *Q:
== END 2017-09-12 13:55 | disposition home or self-care (01) | DRG 176 ==
LOC: CC.LAB 09:34 → CC.MS 09:34 → UNDOADMIN 13:50 → CC.MS 14:10
PROVIDERS: ADMIT Nurse Practitioner Family; ATTEND General Practice
DX: I26.99 Other pulmonary embolism without acute cor pulmonale (principal); M35.3 Polymyalgia rheumatica; Z88.0 Allergy status to penicillin; Z88.5 Allergy status to narcotic agent; Z23 Encounter for immunization
CPT/HCPCS: 36415; 71275; 80048; 83880; 85379; 85610; 86140; Q9967 ×2; 83735; 84484; 85651; 90686; 93005; A9270-GY; G0008; J1650; J2270; J2405

== ENCOUNTER 2019-04-19 14:19 | Emergency (ER) | payer MEDICARE, BC ==
[2019-04-19 14:29] VITALS: BP 131/59
--- NOTE | 2019-04-19 15:26 | EDM.PDOC ---
ED HPI GENERAL MEDICAL PROBLEM - General Chief Complaint: Respiratory Problem Stated Complaint: POSSIBLE PNEUMONIA Time Seen by Provider: 04/19/19 15:08 Source of Information: Reports: Patient History Limitations: Reports: No Limitations - History of Present Illness INITIAL COMMENTS - FREE TEXT/NARRATIVE: Eula is a 79 yo female who presents to the ED via private vehicle with concerns of a cough and pneumonia. States she has not had any fever or chills. Admits symptoms started a few days ago and do not seem to be getting any better. Her sister states she needed to be seen so pt came into ER. States she didn't go to the clinic because her "doctor isn't there". - Related Data Allergies Allergy/AdvReac Type Severity Reaction Status Date / Time codeine Allergy Abdominal Verified 04/19/19 14:29 Pain Penicillins Allergy Hives Verified 04/19/19 14:29 Home Meds: Home Meds Cholecalciferol (Vitamin D3) [Vitamin D3] 5,000 unit PO BEDTIME 05/23/14 [ History] Omeprazole 20 mg PO BEDTIME 05/23/14 [History] Rosuvastatin [Crestor] 40 mg PO BEDTIME 05/23/14 [History] Magnesium Oxide 500 mg PO BEDTIME 07/31/14 [History] Albuterol Sulfate [Proair Hfa] 1 - 2 puff INH ASDIRECTED PRN 09/09/17 [History] Sertraline HCl 100 mg PO BEDTIME 09/09/17 [History] Melatonin 10 mg PO BEDTIME 04/19/19 [History] Metoprolol Succinate 25 mg PO BEDTIME 04/19/19 [History] Warfarin [Coumadin] 5 mg PO BEDTIME 04/19/19 [History] Past Medical History HEENT History: Reports: Cataract Cardiovascular History: Reports: Blood Clots/VTE/DVT, Bypass, High Cholesterol, Hypertension Respiratory History: Reports: COPD Gastrointestinal History: Reports: GERD, PUD Genitourinary History: Reports: None [employer] History: Reports: Musculoskeletal History: Reports: Arthritis, Back Pain, Chronic Neurological History: Reports: Vertigo Psychiatric History: Reports: Depression Hematologic History: Reports: Other (See Below) Other Hematologic History: factor V leiden - Past Surgical History HEENT Surgical History: Reports: Detached Retina Cardiovascular Surgical History: Reports: Coronary Artery Bypass Respiratory Surgical History: Reports: None GI Surgical History: Reports: Appendectomy, Cholecystectomy, Colonoscopy, Polypectomy Female Surgical History: Reports: Hysterectomy, Other (See Below) Other Female Surgeries/Procedures: bladder lift Neurological Surgical History: Reports: None Musculoskeletal Surgical History: Reports: None Social & Family History - Family History Family Medical History: Noncontributory - Tobacco Use Smoking Status *Q: Former Smoker Used Tobacco, but Quit: Yes Month/Year Tobacco Last Used: 5yrs - Caffeine Use Caffeine Use: Reports: None - Recreational Drug Use Recreational Drug Use: No - Living Situation & Occupation Occupation: Retired ED ROS GENERAL - Review of Systems Review Of Systems: ROS reveals no pertinent complaints other than HPI. Constitutional: Reports: Chills, Weakness. Denies: Fever HEENT: Reports: Rhinitis, Sinus Problem (congestion), Throat Pain (sore throat) Respiratory: Reports: Cough. Denies: Shortness of Breath Cardiovascular: Denies: Chest Pain GI/Abdominal: Reports: No Symptoms ED EXAM, GENERAL - Physical Exam Exam: See Below Exam Limited By: No Limitations General Appearance: Alert, Mild Distress Ears: Normal External Exam, Normal Canal, Hearing Grossly Normal, Normal TMs Nose: No Blood, Nasal Drainage, Clear Rhinorrhea Throat/Mouth: Normal Inspection, Normal Lips, Normal Oropharynx, Other (mild pharyngeal erythema) Head: Atraumatic, Normocephalic Neck: Normal Inspection, Supple Respiratory/Chest: No Respiratory Distress, No Accessory Muscle Use, Decreased Breath Sounds (right lower lobe) Neurological: Alert, Oriented, Normal Cognition Psychiatric: Normal Affect, Normal Mood Skin Exam: Warm, Dry, Intact, Normal Color, No Rash Course - Vital Signs Last Recorded V/S: Last Vital Signs Temp 98.0 F 04/19/19 14:26 Pulse 86 04/19/19 14:26 Resp 18 04/19/19 14:26 BP 131/59 L 04/19/19 14:26 Pulse Ox 97 04/19/19 14:26 - Orders/Labs/Meds Orders: Active Orders 24 hr Category Date Time Status Chest 2V [CR] Stat Exams 04/19/19 14:32 Taken Labs: Laboratory Tests 04/19/19 04/19/19 04/19/19 Range/Units 15:04 15:04 15:04 WBC 4.9 L (5.0-10.0) 10^3/uL RBC 4.64 (4.00-5.50) 10^6/uL Hgb 13.8 (12.0-16.0) g/dL Hct 41.6 (37.0-47.0) % MCV 89.7 (82.0-94.0) fL MCH 29.7 (27.0-32.0) pg MCHC 33.2 (33.0-38.0) g/dL RDW Coeff of Rhoda 13.5 (11.0-15.0) % Plt Count 192 (150-400) 10^3/uL Neut % (Auto) 59.4 (35-85) % Lymph % (Auto) 28.9 (10-55) % King % (Auto) 10.5 (0-16) % Eos % (Auto) 1.0 (0-5) % Baso % (Auto) 0.2 (0-3) % Neut # (Auto) 2.88 (1.80-7.00) 10^3/uL Lymph # (Auto) 1.40 (1.00-4.80) 10^3/uL King # (Auto) 0.51 (0.00-0.80) 10^3/uL Eos # (Auto) 0.05 (0.00-0.45) 10^3/uL Baso # (Auto) 0.01 10^3/uL PT 24.6 H (9.7-12.3) SEC INR 2.52 H (0.92-1.18) Sodium 138 (136-145) mEq/L Potassium 4.0 (3.5-5.0) mEq/L Chloride 102 (98-106) mEq/L Carbon Dioxide 25 (21-32) mmol/L BUN 19 H (7-18) mg/dL Creatinine 1.0 (0.6-1.0) mg/dL Est Cr Clr Drug Dosing 40.68 mL/min Estimated GFR (MDRD) 54 L (>=60) mL/min Glucose 100 H (75-99) mg/dL Calcium 8.5 (8.4-10.1) mg/dL C-Reactive Protein 1.7 H (0.2-0.8) mg/dL Departure - Departure Time of Disposition: 15:24 Disposition: Home, Self-Care 01 Clinical Impression: Influenza B - Discharge Information Instructions: Influenza, Adult, [id number] Additional Instructions: 1) Influenza is positive for Influenza B, which is a viral infection 2) Treatment is treating symptoms. 3) Rest 4) Push fluids 5) May use cough medicine, mucinex, etc... 6) Advise if any worsening of symptoms, shortness of breath, fevers or any concerns at all, need to return for reevaluation. - Problem List & Annotations (1) Influenza B SNOMED Code(s): 24625281 Code(s): J10.1 - FLU DUE TO OTH IDENT INFLUENZA VIRUS W OTH RESP MANIFEST Status: Acute - My Orders Last 24 Hours: My Active Orders 04/19/19 14:32 Chest 2V [CR] Stat - Assessment/Plan Last 24 Hours: My Active Orders 04/19/19 14:32 Chest 2V [CR] Stat Plan: See additional instructions.
== END 2019-04-19 15:29 | disposition home or self-care (01) ==
LOC: CC.ED 14:19
DX: J10.1 Influenza due to other identified influenza virus with other respiratory manifestations (principal); E78.00 Pure hypercholesterolemia, unspecified; I10 Essential (primary) hypertension; J44.9 Chronic obstructive pulmonary disease, unspecified; Z87.891 Personal history of nicotine dependence; Z88.5 Allergy status to narcotic agent; Z88.0 Allergy status to penicillin; Z79.899 Other long term (current) drug therapy
CPT/HCPCS: 36415; 71046; 80048; 85025; 85610; 86140; 87804; 99283-25